=== PATIENT | female | born 1985 | race Hispanic/Latino ===

== ENCOUNTER 2024-08-26 20:14 | Emergency (ER) | payer SELFPAY ==
[~2024-08-26] VITALS: Ht 157.5 cm; Wt 61.9 kg
[2024-08-26 20:16] VITALS: TEMP 98.1
--- NOTE | 2024-08-26 20:29 | ERN ---
ED Note History of Present Illness Stated Complaint: DIARRHEA, N/V, ABDOMINAL PAIN, 16 WEEKS Chief Complaint: Abdominal Pain in Time Seen by MD: 20:22 Dictation: PATIENT IS A 39-YEAR-OLD FEMALE WHO IS 16 WEEKS COMING IN TODAY WITH COMPLAINTS OF NAUSEA VOMITING WITH DIARRHEA ONSET FOR THE LAST 2-3 DAYS. SHE DENIES ANY VAGINAL BLEEDING OR DISCHARGE. PATIENT OF DR. ROSALES SHE HAS NOT HAD HER 1ST APPOINTMENT UNTIL September. HE IS ON VITAMINS NO FEVER NO CHILLS Allergies: Coded Allergies: No Known Drug Allergies (Unverified Allergy, Unknown, 08/26/24) Past Medical History Past Medical History: No Pertinent History Surgical History: LMP: May 17, 2024 : 6 Para: 5 Aborts: 0 RN Note Reviewed/Agreed w/PFSH: Yes Review of System Dictation CONSTITUTIONAL: NEGATIVE EXCEPT FOR HPI HEAD/FACE: NEGATIVE EXCEPT FOR HPI EENT: NEGATIVE EXCEPT FOR HPI RESPIRATORY: NEGATIVE EXCEPT FOR HPI GASTROINTESTINAL/ABDOMINAL: NEGATIVE EXCEPT FOR HPI PELVIC PAIN WITH NAUSEA VOMITING AND DIARRHEA GENITOURINARY: NEGATIVE EXCEPT FOR HPI DENIES VAGINAL BLEEDING MUSCULOSKELETAL: NEGATIVE EXCEPT FOR HPI INTEGUMENTARY: NEGATIVE EXCEPT FOR HPI NEUROLOGICAL/PSYCH: NEGATIVE EXCEPT FOR HPI HEMATOLOGIC/LYMPHATIC: NEGATIVE EXCEPT FOR HPI ALL SYSTEMS NEGATIVE, EXCEPT NOTED ABOVE. 13 POINT REVIEW OF SYSTEMS ASSESSED AND ALL NEGATIVE EXCEPT FOR ABOVE. Initial Vital Sign VS Vital Signs Date Time Temp Pulse Resp B/P (MAP) Pulse Ox O2 Delivery O2 Flow Rate FiO2 08/26/24 20:16 98.1 76 16 106/68 98 Room Air 0 08/26/24 21:47 21 Physical Exam Dictation VITAL SIGNS REVIEWED GENERAL APPEARANCE: ALERT, ORIENTED X 3, NO ACUTE DISTRESS, WELL DEVELOPED, NOURISHED. HEAD AND FACE: NON-TRAUMATIC. EYES: PERRL, PINK CONJUNCTIVAS, EYELID NO TRAUMA, ANTERIOR CHAMBER WITH ARCUS SENILIS. EARS: PINNAS INTACT AND NO SIGNS OF TRAUMA OR ERYTHEMA EAR CANALS CLEAR AND NO DISCHARGE TM NO ERYTHEMA NOSE: NO DISCHARGE, NO BLEEDING. OROPHARYNX: MOUTH NORMAL, TONGUE PINK, PHARYNX CLEAR,NO ERYTHEMA, TONSILS NO EXUDATES, NO ABSCESSES NOTED, MUCOUS MEMBRANE MOIST NECK: SUPPLE, NON-TENDER, NO THYROMEGALY, NO MASSES, NO JVD, NO BRUITS BREAST:DEFERRED CHEST:NO TENDERNESS, NO CREPITUS, NO PARADOXICAL MOVEMENT, NO RETRACTIONS LUNGS:CLEAR, WELL-VENTILATED, SYMMETRIC, NO RALES, NO WHEEZING, NO RHONCHI, NO STRIDOR, GOOD BREATH SOUNDS BILATERALLY HEART: REGULAR RATE, REGULAR RHYTHM, NO MURMUR, NO GALLOPS VASCULAR: NO PERIPHERAL EDEMA, ABDOMEN: SOFT, POSITIVE BOWEL SOUNDS, NONDISTENDED, NO GUARDING, NONTENDER, NO REBOUND, NO MASSES NO HEPATOMEGALY, NO SPLENOMEGALY, NO MCCAIN'S SIGN, NO HERNIAS. RECTAL: DEFERRED GENITAL: DEFERRED PATIENT STATES SHE IS NOT HAVING VAGINAL BLEEDING NEUROLOGICAL: NORMAL SPEECH, MOTOR FUNCTION INTACT, SENSORY FUNCTION INTACT MUSCULOSKELETAL: NECK NONTENDER, FULL RANGE OF MOTION, BACK NONTENDER, FULL RANGE OF MOTION, EXTREMITIES: NONTENDER, FULL RANGE OF MOTION SKIN: COLOR PINK, DRY, NO TURGOR, NO RASH, NO LACERATIONS, NO ABRASIONS, NO CONTUSIONS. LYMPHATIC: DEFERRED Results (Laboratory/Radiology) Laboratory/Radiology Laboratory Tests Test 08/26/24 21:20 White Blood Count 6.6 K/uL (4.8-10.8) Red Blood Count 4.10 MIL/uL (4.00-5.50) Hemoglobin 12.0 g/dL (12.0-16.0) Hematocrit 34.8 % (36-48) L Mean Corpuscular Volume 84.9 fL (79-99) Mean Corpuscular Hemoglobin 29.3 pg (27.0-33.0) Mean Corpuscular Hemoglobin Concent 34.5 g/dL (32.0-36.0) Red Cell Distribution Width 15.4 % (11.0-15.5) Platelet Count 195 K/uL (130-400) Mean Platelet Volume 10.0 fL (7.5-10.5) Immature Granulocyte % (Auto) 0.2 % (0-1) Neutrophils (%) (Auto) 79.9 % (40.0-77.0) H Lymphocytes (%) (Auto) 13.1 % (21.0-51.0) L Monocytes (%) (Auto) 6.1 % (3.0-13.0) Eosinophils (%) (Auto) 0.5 % (0.0-8.0) Basophils (%) (Auto) 0.2 % (0.0-5.0) Neutrophils # (Auto) 5.3 K/uL (1.8-7.7) Lymphocytes # (Auto) 0.9 K/uL (1.0-4.8) L Monocytes # (Auto) 0.4 K/uL (0.1-1.0) Eosinophils # (Auto) 0.03 K/uL (0.00-0.70) Basophils # (Auto) 0.01 K/uL (0.00-0.20) Absolute Immature Granulocyte (auto 0.01 K/uL (0-1) Nucleated Red Blood Cells 0.0 % (0.0-0.19) Sodium Level 129 mmol/L (136-145) L Potassium Level 3.4 mmol/L (3.5-5.1) L Chloride Level 100 mmol/L (101-111) L Carbon Dioxide Level 25 mmol/L (21-32) Blood Urea Nitrogen 7 mg/dL (7-18) Creatinine 0.6 mg/dL (0.5-1.0) Glomerular Filtration Rate Calc 118 mL/min (>90) Random Glucose 93 mg/dL (70-105) Total Calcium 8.6 mg/dL (8.5-10.1) Human Chorionic Gonadotropin, Quant 57619 mIU/mL (0-5) H OB ULTRASOUND DEMONSTRATES VIABLE IUP, 16W6D, HEART TONES 158 Labs Reviewed?: Yes ED Course ED Course Orders Procedure Category Date Status Time Cbc With Differential LAB 08/26/24 Complete 20:26 Hcg,Quantitative LAB 08/26/24 Complete 20:26 Us Ob >14 Weeks US 08/26/24 Resulted 20:26 0.9%Nacl 1000ml (Ns PHA 08/26/24 Complete 1000ml) 20:30 Ondansetron 4mg Inj PHA 08/26/24 Complete (Zofran 4mg Inj) 20:30 Type And Screen BBK 08/26/24 Complete 20:26 Basic Metabolic Panel LAB 08/26/24 Complete 20:26 Current Medications Medications (Trade) Dose Ordered Sig/Jose E Route PRN Reason Start Time Stop Time Status Last Admin Dose Admin Ondansetron HCl (zoFRAN 4MG INJ) 4 mg ONCE ONCE IVP 08/26/24 20:30 08/26/24 20:31 DC 08/26/24 21:50 Sodium Chloride 1,000 ml @ 0 mls/hr ONCE ONCE IV 08/26/24 20:30 08/26/24 20:31 DC 08/26/24 21:50 Vital Signs Date Time Temp Pulse Resp B/P (MAP) Pulse Ox O2 Delivery O2 Flow Rate FiO2 08/26/24 21:47 64 15 97/56 98 Room Air* 0 21 08/26/24 20:16 98.1 76 16 106/68 98 Room Air 0 Medical Decision Making [facility] [address] [place] [address] IMAGING REPORT Signed PATIENT: ANIYA ZAMORA MR#: [id number] : 1985 SEX: F AGE: 39 LOCATION: [facility] ORDER 27 STATUS: REG ER REPORT#: [id number] SERVICE 25 REASON: ABDOMINAL CRAMPING, [address] ROSALES ORDERING PHYSICIAN: TOOTIE BLACKMAN NP PROCEDURE: OB >14 - US OB >14 WEEKS Exam Type: US OB >14 WEEKS Clinical Information: ABDOMINAL CRAMPING, [address] ROSALES Comparison: None FINDINGS: Single live intrauterine seen. No perigestational sac hematoma identified. CRL measures 8.9 cm , corresponds to 14 weeks 6 day. cardiac activity and heart rate is 1 5 beats per minute. The uterus is anteverted with normal shape. It measures 13.9 x 5.6 x 10 cm in its maximum length, anteroposterior and transverse dimensions. The myometrium is homogeneous and there is no evidence of focal or diffuse lesions. Both ovaries appear normal with normal flow on color and Spectral Doppler. No adnexal masses. No free fluid or collections. Urinary bladder appears normal. IMPRESSION: 1. Single live intrauterine gestation 14 weeks 6 days. DICTATED BY: LOUISE PRATHER MD DATE: 08/26/242122 ELECTRONICALLY SIGNED BY: LOUISE PRATHER MD DATE: 08/26/242127 DX & DISP Disposition: Discharge Departure Impression: Primary Impression: Second trimester Additional Impression: Gastroenteritis Condition: Stable Scripts Ondansetron (Ondansetron Odt) 4 Mg Tab.rapdis 4 MG PO BID for 7 Days, #14 TAB Prov: GELY BEATTY 08/26/24 Additional Instructions: YOUR BLOOD WORK TODAY IS STABLE. YOUR PELVIC ULTRASOUND IS REMARKABLE FOR A SINGLE LIVE INTRAUTERINE GESTATION THAT MEASURES APPROXIMATELY 14 WEEKS AND SIX [place] [id number]. I HAVE GIVEN YOU A PRESCRIPTION FOR ZOFRAN WHICH SHOULD HELP WITH YOUR NAUSEA. FOLLOW UP WITH YOUR PRIMARY CARE DOCTOR IN 2-3 DAYS FOR REPEAT EVALUATION. FOLLOW UP WITH YOUR OBGYN NEXT WEEK FOR OUTPATIENT EVALUATION. RETURN TO THE ER IF YOU DEVELOP ANY NEW OR WORSENING SYMPTOMS. Referrals: SELF,REFERRAL (PCP) Time of Disposition: 22:30 I have reviewed the case, and I agree with, Diagnosis and Plan I PERFORMED THE SUBSTANTIVE PORTION OF THE VISIT. I HAVE REVIEWED AND PERSONALLY MADE AND APPROVE THE MANAGEMENT PLAN THAT IS DOCUMENTED IN THE NOTE BY MYSELF OR THE [employer]. I ACKNOWLEDGE FOR RESPONSIBILITY FOR THE PATIENT'S MANAGEMENT PLAN. TOOTIE BLACKMAN NP Aug 26, 2024 20:29 GELY BEATTY Aug 26, 2024 22:33
--- NOTE | 2024-08-26 21:28 | HMCIMG ---
Exam Type: US OB >14 WEEKS Clinical Information: ABDOMINAL CRAMPING, [address] ROSALES Comparison: None FINDINGS: Single live intrauterine seen. No perigestational sac hematoma identified. CRL measures 8.9 cm , corresponds to 14 weeks 6 day. cardiac activity and heart rate is 1 5 beats per minute. The uterus is anteverted with normal shape. It measures 13.9 x 5.6 x 10 cm in its maximum length, anteroposterior and transverse dimensions. The myometrium is homogeneous and there is no evidence of focal or diffuse lesions. Both ovaries appear normal with normal flow on color and Spectral Doppler. No adnexal masses. No free fluid or collections. Urinary bladder appears normal. IMPRESSION: 1. Single live intrauterine gestation 14 weeks 6 days.
[2024-08-26 21:36] LABS: BASOPHILS # (AUTO) 0.01 K/uL (0.00-0.20); BASOPHILS % (AUTO) 0.2 % (0.0-5.0); EOSINOPHILS # (AUTO) 0.03 K/uL (0.00-0.70); EOSINOPHILS % (AUTO) 0.5 % (0.0-8.0); HEMATOCRIT 34.8 % (36-48); IMMATURE GRANULOCYTE ABSOLUTE 0.01 K/uL (0-1); LYMPHOCYTES # (AUTO) 0.9 K/uL (1.0-4.8); LYMPHOCYTES % (AUTO) 13.1 % (21.0-51.0); MEAN CORPUSCULAR HEMOGLOBIN 29.3 pg (27.0-33.0); MEAN CORPUSCULAR HGB CONC 34.5 g/dL (32.0-36.0); MEAN CORPUSCULAR VOLUME 84.9 fL (79-99); MONOCYTES # (AUTO) 0.4 K/uL (0.1-1.0); MONOCYTES % (AUTO) 6.1 % (3.0-13.0); NEUTROPHILS # (AUTO) 5.3 K/uL (1.8-7.7); NEUTROPHILS % (AUTO) 79.9 % (40.0-77.0); PLATELET COUNT (AUTO) 195 K/uL (130-400); RED CELL DISTRIBUTION WIDTH 15.4 % (11.0-15.5); WHITE BLOOD COUNT (AUTO) 6.6 K/uL (4.8-10.8)
[2024-08-26] MEDS: 0.9%NACL 1000ML 1,000 ML IV ONE (21:50)
[2024-08-26] MEDS: ondanSETRON 4MG INJ IVP ONE (21:50)
[2024-08-26 22:02] LABS: CREATININE 0.6 mg/dL (0.5-1.0); POTASSIUM 3.4 mmol/L (3.5-5.1)
[2024-08-26 22:28] VITALS: BP 95/48; PULSE 68; RESP 16; O2SAT 97
--- NOTE | 2024-08-26 22:28 | NUR ---
PATIENT CARE ENDORSED TO [facility]
[2024-08-26] MEDS ORDERED: ONDA-243 PO (22:31)
== END 2024-08-26 22:48 | disposition home or self-care (01) ==
LOC: EDH 20:14
DX: O26.892 Other specified pregnancy related conditions, second trimester (principal); K52.9 Noninfective gastroenteritis and colitis, unspecified; R10.2 Pelvic and perineal pain; Z3A.16 16 weeks gestation of pregnancy
CPT/HCPCS: 99285; 96374; 76805; 96361; 80048; 84702; 85025; 86850; 86900; 86901; 36415; J7030; J2405